=== PATIENT | male | born 1980 | race Caucasian/White ===

== ENCOUNTER 2023-10-28 05:46 | Emergency (ER) | payer OTHER, SELFPAY ==
[2023-10-28] VITALS (23 sets, daily range): BP systolic 124–170; BP diastolic 78–105; PULSE 74–91; RESP 13–29; TEMP 36.6; O2SAT 94–100; BMI 32.3
--- NOTE | 2023-10-28 06:06 | ED_ITS ---
HPI - Chest Pain General Chief Complaint: Chest Pain Stated Complaint: CHEST PAIN Time Seen by Provider: 10/28/23 06:01 Source: patient Mode of arrival: walk-in Limitations: no limitations History of Present Illness HPI narrative: past history of HTN. 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 exercises regularly. family history of heart disease in his mother who passed at 63. Worked all night and became symptomatic about an hour ago. chest sore and heart fluttering. Short of breath and dizzy like he could pass out. Related Data Home Medications Medication Instructions Recorded Confirmed losartan 50 mg tablet mg 10/28/23 metoprolol tartrate 50 tab 10/28/23 mg-hydrochlorothiazide 25 mg tablet Allergies Allergy/AdvReac Type Severity Reaction Status Date / Time No Known Drug Allergies Allergy Verified 10/28/23 05:56 Review of Systems ROS Status of ROS 10 or more systems reviewed and unremark able except as noted in history and below [facility] Social History Smoking status: Never smoker Exam Constitutional Vital Signs, click to edit/add: Last Vital Signs Temp 98 F 10/28/23 05:50 Pulse 82 10/28/23 08:20 Resp 19 10/28/23 08:20 BP 124/92 H 10/28/23 08:01 Pulse Ox 100 10/28/23 08:20 O2 Del Method Room Air 10/28/23 06:13 Common normals: oriented x3, healthy appearing, alert and well nourished General appearance: in distress (dyspnea ) Eye Common normals: PERRL, EOMs intact bilaterally and conjunctivae normal Chest Common normals: inspection of chest normal and palpation of chest normal Respiratory Common normals: normal respiratory effort, no retractions and no use of accessory muscles Cardio Common normals: regular rate, regular rhythm, S1 normal heart sound and S2 normal heart sound GI Common normals: Normal to inspection, nondistended, normoactive bowel sounds present, soft to palpation and non-tender Extremity Common normals: normal to inspection and full ROM Neuro Common normals: oriented x3, CN's II-XII intact bilaterally, moves all extremities and no focal motor deficits Psych Appearance: grossly normal Course Vital Signs Vital signs: Vital Signs Temperature 98 F 10/28/23 05:50 Pulse Rate 82 10/28/23 05:50 Respiratory Rate 18 10/28/23 05:50 Blood Pressure 170/99 H 10/28/23 05:50 Pulse Oximetry 100 10/28/23 05:50 Oxygen Delivery Method Room Air 10/28/23 05:50 Temperature 98 F 10/28/23 05:50 Pulse Rate 82 10/28/23 08:20 Respiratory Rate 19 10/28/23 08:20 Blood Pressure 124/92 H 10/28/23 08:01 Pulse Oximetry 100 10/28/23 08:20 Oxygen Delivery Method Room Air 10/28/23 06:13 MDM - Chest Pain MDM Narrative Medical decision making narrative: healthy male who works out . history of HTN. This AM developed sensation of heart fluttering in his chest, dyspnea and felt like he might pass out. Arrives to the ER and feels a little better but still short of breath. Describes his chest as sore. Mother DC 63. EKG NSR incomplete RBBB. Noisy base. labs ordered including troponin, d-dimer and cxray. care transferred at change of shift Lab Data Labs: Lab Results 10/28/23 10/28/23 Range/Units 06:00 07:23 WBC 9.3 (4.0-11.0) 10^3/uL RBC 5.31 (4.70-6.10) 10^6/uL Hgb 17.4 (14.0-18.0) g/dL Hct 48.9 (42.0-54.0) % MCV 92.1 (80.0-94.0) fL MCH 32.8 (25.9-34.0) pg MCHC 35.6 H (29.9-35.2) g/dL RDW 12.6 (11.0-15.0) % Plt Count 184 (150-450) 10^3/uL MPV 9.6 (9.5-13.5) fL Neut % (Auto) 54.4 (43.0-75.0) % Lymph % (Auto) 31.6 (20.5-60.0) % [place] % (Auto) 12.3 H (1.7-12.0) % Eos % (Auto) 1.1 (0.9-7.0) % Baso % (Auto) 0.3 (0.2-2.0) % Neut # (Auto) 5.1 (1.4-6.5) 10^3/uL Lymph # (Auto) 2.9 (1.2-3.8) 10^3/uL [place] # (Auto) 1.1 H (0.3-0.8) 10^3/uL Eos # (Auto) 0.1 (0.0-0.7) 10^3/uL Baso # (Auto) 0.0 (0.0-0.1) 10^3/uL Abs Immat Gran (auto) 0.03 (0.00-0.03) 10^3/uL Imm/Tot Granulo (auto) 0.3 (0.0-0.5) % D-Dimer <0.19 (<=0.59) mg/L FEU Sodium 137 (136-145) mmol/L Potassium 3.1 L (3.5-5.1) mmol/L Chloride 99 (98-107) mmol/L Carbon Dioxide 30.9 (21.0-32.0) mmol/L Anion Gap 10.2 BUN 22.0 H (7.0-18.0) mg/dL Creatinine 1.31 H (0.70-1.30) mg/dL Est GFR ( Amer) >60 (>=60) Est GFR (Non-Af Amer) >60 (>=60) BUN/Creatinine Ratio 16.8 Glucose 96 (74-106) mg/dL Calcium 9.5 (8.5-10.1) mg/dL Troponin I High Sens 7.7 9.8 (4.0-76.1) pg/mL Discharge Plan Discharge Chief Complaint: Chest Pain Clinical Impression: Chest pain Patient Disposition: Home, Self-Care Time of Disposition Decision: 08:09 Condition: Good Mode of Transportation: Private Vehicle Prescriptions / Home Meds: No Action losartan 50 mg tablet metoprolol ta-hydrochlorothiaz 50-25 mg tablet Instructions: Chest Pain (ED) Additional Instructions: call your PCP today to make a follow-up appointment. Return to emergency Department if symptoms return. Stand Alone Forms: Portal Instructions Referrals: Physician,Non-Staff, MD [Primary Care Provider] - 1 week Discharge Date/Time: 10/28/23 08:26
--- NOTE | 2023-10-28 06:12 | ECG_ITS ---
[facility] Test Date: 2023-10-28 Pat Name: RAND MURRELL Department: Room: - Gender: Male [employer] Hand: : 1980 Requested By: [id number] Order Number: [id number] Reading MD: COOPER ROSALES Measurements Intervals [place] Rate: 84 P: 47 TX: 200 QRS: -63 QRSD: 124 T: -15 QT: 346 QTc: 387 Interpretive Statements 1100 Sinus rhythm 2231 First degree AV block 2540 Incomplete left bundle branch block [address] depression [address] & Twave abnormality 7300 Indeterminate axis No change from previous tracing of 07/03/21 Electronically Signed On 10-29-2023 6:50:38 EST by COOPER ROSALES
--- NOTE | 2023-10-28 06:12 | XR_ITS ---
The [address] [address] Patient Name: RAND MURRELL MRN: [id number] date: 1980 Sex: M Assigned Patient Location: ED.MAIN Current Patient Location: ER Accession/Order Number: [id number] Exam Date: 10/28/2023 06:20 Report Date: 10/28/2023 06:51 At the request of: CANDACE HANKS Procedure: XR chest 1V EXAM: XR chest 1V HISTORY: chest pain COMPARISON: None. TECHNIQUE: One view of the chest was obtained. FINDINGS: The cardiac silhouette is normal in size. There are bibasilar opacities. There is no significant pneumothorax or pleural effusion. No acute osseous abnormality is seen. XR/XR chest 1V IMPRESSION: 1. Bibasilar opacities are felt to represent atelectasis though infection could be present. Electronically authenticated by: Yamile IZQUIERDO Date: 10/28/2023 06:51
[2023-10-28 06:25] LABS: Basophils Percent Auto 0.3 % (0.2-2.0); Eosinophils Absolute Auto 0.1 10^3/uL (0.0-0.7); Eosinophils Percent Auto 1.1 % (0.9-7.0); Hematocrit 48.9 % (42.0-54.0); Hemoglobin 17.4 g/dL (14.0-18.0); Immature Granulocytes Abs Auto 0.03 10^3/uL (0.00-0.03); Immature Granulocytes Pct Auto 0.3 % (0.0-0.5); Lymphocytes Absolute Auto 2.9 10^3/uL (1.2-3.8); Lymphocytes Percent Auto 31.6 % (20.5-60.0); Mean Corpuscular HGB Conc 35.6 g/dL (29.9-35.2); Mean Corpuscular Hemoglobin 32.8 pg (25.9-34.0); Mean Corpuscular Volume 92.1 fL (80.0-94.0); Mean Platelet Volume 9.6 fL (9.5-13.5); Monocytes Absolute Auto 1.1 10^3/uL (0.3-0.8); Monocytes Percent Auto 12.3 % (1.7-12.0); Neutrophils Absolute Auto 5.1 10^3/uL (1.4-6.5); Neutrophils Percent Auto 54.4 % (43.0-75.0); Platelet Count 184 10^3/uL (150-450); Red Blood Count 5.31 10^6/uL (4.70-6.10); Red Cell Distribution Width 12.6 % (11.0-15.0); White Blood Count 9.3 10^3/uL (4.0-11.0)
[2023-10-28 06:35] LABS: D Dimer <0.19 mg/L FEU (<=0.59)
[2023-10-28 06:41] LABS: Anion Gap 10.2; BUN Creatinine Ratio 16.8; Calcium 9.5 mg/dL (8.5-10.1); Carbon Dioxide 30.9 mmol/L (21.0-32.0); Chloride 99 mmol/L (98-107); Estimated GFR (African America >60 (>=60); Estimated GFR (Non-African Ame >60 (>=60); Glucose 96 mg/dL (74-106); Potassium 3.1 mmol/L (3.5-5.1); Sodium 137 mmol/L (136-145); Troponin I High Sensitivity 7.7 pg/mL (4.0-76.1)
[2023-10-28] MEDS: NITROGLYCERIN 0.4 MG BOTTLE PO (06:42)
[2023-10-28 07:52] LABS: Troponin I High Sensitivity 9.8 pg/mL (4.0-76.1)
--- NOTE | 2023-10-28 08:10 | ED_ITS ---
HPI - Chest Pain General Chief Complaint: Chest Pain Stated Complaint: CHEST PAIN Time Seen by Provider: 10/28/23 06:01 Source: patient Mode of arrival: walk-in Limitations: no limitations History of Present Illness HPI narrative: The patient was initially seen by Dr. Severino and signed out to me after discussing the case with him thoroughly. Please see his full history and physical exam. Related Data Home Medications Medication Instructions Recorded Confirmed losartan 50 mg tablet mg 10/28/23 metoprolol tartrate 50 tab 10/28/23 mg-hydrochlorothiazide 25 mg tablet Allergies Allergy/AdvReac Type Severity Reaction Status Date / Time No Known Drug Allergies Allergy Verified 10/28/23 05:56 PFSH PFSH Social History Smoking status: Never smoker Exam Constitutional Vital Signs, click to edit/add: Last Vital Signs Temp 98 F 10/28/23 05:50 Pulse 83 10/28/23 06:40 Resp 24 10/28/23 06:40 BP 152/105 H 10/28/23 06:31 Pulse Ox 95 10/28/23 06:40 O2 Del Method Room Air 10/28/23 06:13 Course Vital Signs Vital signs: Vital Signs Temperature 98 F 10/28/23 05:50 Pulse Rate 82 10/28/23 05:50 Respiratory Rate 18 10/28/23 05:50 Blood Pressure 170/99 H 10/28/23 05:50 Pulse Oximetry 100 10/28/23 05:50 Oxygen Delivery Method Room Air 10/28/23 05:50 Temperature 98 F 10/28/23 05:50 Pulse Rate 83 10/28/23 06:40 Respiratory Rate 24 10/28/23 06:40 Blood Pressure 152/105 H 10/28/23 06:31 Pulse Oximetry 95 10/28/23 06:40 Oxygen Delivery Method Room Air 10/28/23 06:13 MDM - Chest Pain MDM Narrative Medical decision making narrative: his symptoms have resolved completely and two sets of troponin are negative. His workup is negative and he is discharged home. He was instructed to call his PCP today to make a follow-up appointment and that he may need to have an outpatient stress test performed. There is no indication for admission to the hospital at this point. Treatment diagnosis and follow-up were discussed with the patient. Differential Diagnosis Differential diagnosis: Likely pneumothorax, unstable angina pectoris, atypical chest pain, st elevation myocardial infarction, costochondritis and chest pain Lab Data Attestation: I reviewed the patient's lab results. Labs: Lab Results 10/28/23 10/28/23 Range/Units 06:00 07:23 WBC 9.3 (4.0-11.0) 10^3/uL RBC 5.31 (4.70-6.10) 10^6/uL Hgb 17.4 (14.0-18.0) g/dL Hct 48.9 (42.0-54.0) % MCV 92.1 (80.0-94.0) fL MCH 32.8 (25.9-34.0) pg MCHC 35.6 H (29.9-35.2) g/dL RDW 12.6 (11.0-15.0) % Plt Count 184 (150-450) 10^3/uL MPV 9.6 (9.5-13.5) fL Neut % (Auto) 54.4 (43.0-75.0) % Lymph % (Auto) 31.6 (20.5-60.0) % [place] % (Auto) 12.3 H (1.7-12.0) % Eos % (Auto) 1.1 (0.9-7.0) % Baso % (Auto) 0.3 (0.2-2.0) % Neut # (Auto) 5.1 (1.4-6.5) 10^3/uL Lymph # (Auto) 2.9 (1.2-3.8) 10^3/uL [place] # (Auto) 1.1 H (0.3-0.8) 10^3/uL Eos # (Auto) 0.1 (0.0-0.7) 10^3/uL Baso # (Auto) 0.0 (0.0-0.1) 10^3/uL Abs Immat Gran (auto) 0.03 (0.00-0.03) 10^3/uL Imm/Tot Granulo (auto) 0.3 (0.0-0.5) % D-Dimer <0.19 (<=0.59) mg/L FEU Sodium 137 (136-145) mmol/L Potassium 3.1 L (3.5-5.1) mmol/L Chloride 99 (98-107) mmol/L Carbon Dioxide 30.9 (21.0-32.0) mmol/L Anion Gap 10.2 BUN 22.0 H (7.0-18.0) mg/dL Creatinine 1.31 H (0.70-1.30) mg/dL Est GFR ( Amer) >60 (>=60) Est GFR (Non-Af Amer) >60 (>=60) BUN/Creatinine Ratio 16.8 Glucose 96 (74-106) mg/dL Calcium 9.5 (8.5-10.1) mg/dL Troponin I High Sens 7.7 9.8 (4.0-76.1) pg/mL Imaging Data Chest x-ray: Radiologist's impression: ITS Impressions Chest X-Ray 10/28/23 06:12 IMPRESSION: 1. Bibasilar opacities are felt to represent atelectasis though infection could be present. Electronically authenticated by: Yamile IZQUIERDO Date: 10/28/2023 06:51 Heart Score History: Moderately Suspicious ECG: Normal Age: <45 years Risk Factors: No Risk Factors Troponin: <Normal Limit Total Heart Score Recommendations & Risks:: 1 Discharge Plan Discharge Chief Complaint: Chest Pain Clinical Impression: Chest pain Patient Disposition: Home, Self-Care Time of Disposition Decision: 08:09 Condition: Good Mode of Transportation: Private Vehicle Prescriptions / Home Meds: No Action losartan 50 mg tablet metoprolol ta-hydrochlorothiaz 50-25 mg tablet Instructions: Chest Pain (ED) Additional Instructions: call your PCP today to make a follow-up appointment. Return to emergency Department if symptoms return. Stand Alone Forms: Portal Instructions Referrals: Physician,Non-Staff, MD [Primary Care Provider] - 1 week
== END 2023-10-28 08:26 | disposition home or self-care (01) ==
PROVIDERS: Internal Medicine; Emergency Provider Emergency Medicine
DX: R07.9 Chest pain, unspecified (principal); I45.10 Unspecified right bundle-branch block; Z79.899 Other long term (current) drug therapy
CPT/HCPCS: 36415; 71045; 80048; 84484; 85025; 85378; 93005; 99285